=== PATIENT | female | born 1940 | race Caucasian/White ===

== ENCOUNTER 2020-03-29 19:38 | Emergency (ER) | payer MEDICARE ==
[~2020-03-29] VITALS: Ht 152.4 cm; Wt 77.1 kg
[2020-03-29 20:17] LABS: Source, Urine Clean Catch
[2020-03-29 20:21] LABS: Appearance, Urine Hazy (Clear); Bilirubin, Urine Neg (Neg); Blood, Urine 2+ (Neg); Color, Urine Yellow (P-Yellow); Glucose Qualitative, Urine Neg (Neg); Ketones, Urine Neg (Neg); Leukocyte Esterase, Urine 2+ (Neg); Nitrite, Urine Neg (Neg); Protein, Urine 2+ (Neg); Urobilinogen, Urine NORM (Normal)
[2020-03-29 20:28] LABS: Bacteria Rare /hpf; Red Blood Cells, Urine 0-2 /hpf (0-2); Squamous Epithelial Cells Few /hpf (Few)
[2020-03-29 22:25] LABS: Calcium, Ionized (POC) 1.17 mmol/L (1.10-1.46); Chloride (POC) 102 mmol/L (98-108); Creatinine (POC) 0.9 mg/dL (0.6-1.0); Glucose (ISTAT POC) 145 mg/dL (70-99); Hemoglobin (POC) 12.2 g/dL (12.0-16.0); Potassium (POC) 4.6 mmol/L (3.5-5.5); Sodium (POC) 136 mmol/L (135-148); Total CO2 (POC) 26 mmol/L (21-32)
[2020-03-29] MEDS ORDERED: HYDHCL25 PO (23:30)
[2020-03-29] MEDS ORDERED: KEFLEX500 MG PO (23:30)
[2020-03-29] MEDS ORDERED: CELE100 PO (23:30)
== END 2020-03-29 23:48 | disposition home or self-care (01) ==
LOC: ER 19:38
PROVIDERS: Emergency Medicine
DX: N39.0 Urinary tract infection, site not specified (principal); M25.812 Other specified joint disorders, left shoulder; I10 Essential (primary) hypertension
CPT/HCPCS: 36415; 73030; 80047; 81001; 85014; 87086; 93005; 93010; 96372; 99284-25; J3301